=== PATIENT | male | born 1955 | race Caucasian/White ===

== ENCOUNTER → 2023-10-14 10:30 | Outpatient (REF) | payer MEDICARE, SELFPAY | LOC: RAD 10:30 | PROVIDERS: ATTENDING PHYSICIAN Nurse Practitioner | DX: M79.89 Other specified soft tissue disorders (principal) | CPT/HCPCS: 93971 ==

== ENCOUNTER → 2023-10-21 10:16 | Outpatient (REF) | payer MEDICARE, SELFPAY | LOC: RAD 10:16 | PROVIDERS: ATTENDING PHYSICIAN Nurse Practitioner | DX: M25.561 Pain in right knee (principal) | CPT/HCPCS: 73564 ==

== ENCOUNTER → 2023-12-11 07:19 | Outpatient (REF) | payer MEDICARE, SELFPAY | LOC: RAD 07:19 | PROVIDERS: ATTENDING PHYSICIAN Nurse Practitioner | DX: M79.89 Other specified soft tissue disorders (principal) | CPT/HCPCS: 93922; 93925 ==

== ENCOUNTER → 2025-03-30 09:40 | Outpatient (REF) | payer MEDICARE, SELFPAY | LOC: EMG 09:40 | PROVIDERS: ATTENDING PHYSICIAN Nurse Practitioner | DX: R73.03 Prediabetes (principal) | CPT/HCPCS: 95886; 95909 ==